=== PATIENT | male | born 1980 | race Caucasian/White ===

== ENCOUNTER 2024-03-06 18:38 | Emergency (ER) | payer OTHER ==
[2024-03-06 18:58] VITALS: BMI 23.6
[2024-03-06] MEDS ORDERED: ONDANSETRON 4 MG/2 ML VIAL ONE (20:04)
[2024-03-06] MEDS: ACETAMINOPHEN 1000 MG/100 ML BAG IVPB ONE (20:06)
[2024-03-06] MEDS: ONDANSETRON 4 MG/2 ML VIAL IVPUSH ONE (20:06)
[2024-03-06] MEDS: SODIUM CHLORIDE 0.9% 500 ML INFUS.BAG IV ONE (20:06)
[2024-03-06 20:14] LABS: BASO % 0.4 % (0-2.0); EOS % 0.9 % (0-4.5); HEMATOCRIT 41.3 % (35.4-49); HEMOGLOBIN 14.4 GM/dL (11.7-16.9); LYMPH % 13.2 % (8-40); MCH 31.3 pg (25.7-33.7); MCHC 34.9 g/dl (32.0-35.9); MEAN CELL VOLUME 89.8 fl (80-96); MEAN PLT VOLUME 9.6 fl (7.5-11.1); MONO % 10.5 % (3.8-10.2); PLATELET COUNT 235 10^3/uL (134-434); RBC 4.59 M/mm3 (4.00-5.60); RDW 13.1 % (11.9-15.9); WHITE BLOOD COUNT 8.9 K/mm3 (4.0-10.0)
[2024-03-06 20:31] LABS: THROAT:GRP A STREP NOT DETECTED (NOTDETECTED)
[2024-03-06 20:36] LABS: POTASSIUM 4.4 mmol/L (3.5-5.1)
[2024-03-06 20:38] LABS: CALCIUM 9.1 mg/dL (8.5-10.1)
[2024-03-06 20:39] LABS: BLOOD UREA NITROGEN 7.5 mg/dL (7-18)
[2024-03-06 20:42] LABS: CREATININE 0.8 mg/dL (0.55-1.3)
[2024-03-06 20:44] LABS: TOT PROT 7.1 g/dl (6.4-8.2)
[2024-03-06 20:49] LABS: BILIRUBIN,TOTAL 0.6 mg/dL (0.2-1)
[2024-03-06] MEDS ORDERED: KETOROLAC TROMETHAMINE 30 MG/1 ML VIAL IVPUSH ONE (21:01)
[2024-03-06 21:21] VITALS: BP 105/63; PULSE 67; RESP 16; TEMP 98.6
== END 2024-03-06 22:06 | disposition home or self-care (01) ==
LOC: JERFT 18:38 → JER 18:38 → JERFT 22:06
PROC: 3E030NZ Introduction of Analgesics, Hypnotics, Sedatives into Peripheral Vein, Open Approach (ICD-10-PCS; principal; 2024-03-06)
PROC: 3E030GC Introduction of Other Therapeutic Substance into Peripheral Vein, Open Approach (ICD-10-PCS; 2024-03-06)
DX: R09.81 Nasal congestion (principal); B34.9 Viral infection, unspecified; M79.10 Myalgia, unspecified site; R50.9 Fever, unspecified; R11.2 Nausea with vomiting, unspecified; Z20.822 Contact with and (suspected) exposure to COVID-19
CPT/HCPCS: 0241U-QW; 36415; 80053; 85025; 87651; 99284-25; J0131

== ENCOUNTER 2024-04-23 00:49 | Emergency (ER) | payer OTHER ==
[2024-04-23 00:54] VITALS: BP 131/69; RESP 18; BMI 25.8
[2024-04-23] MEDS ORDERED: ACETAMINOPHEN INJECTION 100 ML IVPB ONE (01:28)
[2024-04-23] MEDS ORDERED: ONDANSETRON 4 MG/2 ML VIAL ONE (01:28)
[2024-04-23] MEDS: LACTATED RINGERS SOLUTION 1000 ML INFUS.BAG IV ONE (01:37)
[2024-04-23] MEDS: ONDANSETRON 4 MG/2 ML VIAL IVPUSH ONE (01:37)
[2024-04-23] MEDS: ACETAMINOPHEN 1000 MG/100 ML BAG IVPB ONE (01:37)
[2024-04-23 01:41] LABS: HEMATOCRIT 37.4 % (35.4-49); HEMOGLOBIN 12.9 GM/dL (11.7-16.9); MCH 31.1 pg (25.7-33.7); MCHC 34.4 g/dl (32.0-35.9); MEAN CELL VOLUME 90.3 fl (80-96); MEAN PLT VOLUME 9.5 fl (7.5-11.1); PH,URINE 6.5 (5.0-8.0); PLATELET COUNT 244 10^3/uL (134-434); RBC 4.14 M/mm3 (4.00-5.60); URINE APPEARANCE CLEAR; URINE BILIRUBIN NEGATIVE (NEGATIVE); URINE COLOR YELLOW; URINE GLUCOSE (UA) NEGATIVE (NEGATIVE); URINE KETONE 1+ (NEGATIVE); URINE LEUK ESTERASE NEGATIVE (NEGATIVE); URINE NITRITE NEGATIVE (NEGATIVE); URINE PROTEIN TRACE (NEGATIVE); WHITE BLOOD COUNT 22.5 K/mm3 (4.0-10.0)
[2024-04-23 01:59] LABS: POTASSIUM 3.9 mmol/L (3.5-5.1)
[2024-04-23 02:01] LABS: CALCIUM 8.5 mg/dL (8.5-10.1)
[2024-04-23 02:02] LABS: ALBUMIN 3.8 g/dl (3.4-5.0); BLOOD UREA NITROGEN 8.6 mg/dL (7-18); MAGNESIUM 1.6 mg/dL (1.8-2.4)
[2024-04-23 02:05] LABS: CREATININE 0.7 mg/dL (0.55-1.3)
[2024-04-23 02:08] LABS: BILIRUBIN,TOTAL 0.8 mg/dL (0.2-1); TOT PROT 6.8 g/dl (6.4-8.2)
[2024-04-23] MEDS ORDERED: MAGNESIUM SULFATE IN WATER 2 GM/50 ML IVPB IVPB ONE (02:11)
[2024-04-23] MEDS ORDERED: KETOROLAC TROMETHAMINE 15 MG/ML VIAL ONE (02:15)
[2024-04-23] MEDS: KETOROLAC TROMETHAMINE 15 MG/ML VIAL IVPUSH ONE (02:18)
[2024-04-23] MEDS: MAGNESIUM SULFATE IN WATER 2 GM/50 ML IVPB IVPB ONE (02:18)
[2024-04-23 03:06] LABS: ANISOCYTOSIS 0; MACROCYTOSIS 0
[2024-04-23 04:22] VITALS: PULSE 76; TEMP 99.2
== END 2024-04-23 04:31 | disposition home or self-care (01) ==
LOC: JER 00:49
PROC: 3E033GC Introduction of Other Therapeutic Substance into Peripheral Vein, Percutaneous Approach (ICD-10-PCS; principal; 2024-04-23)
PROC: 3E033GC Introduction of Other Therapeutic Substance into Peripheral Vein, Percutaneous Approach (ICD-10-PCS; 2024-04-23)
PROC: 3E033NZ Introduction of Analgesics, Hypnotics, Sedatives into Peripheral Vein, Percutaneous Approach (ICD-10-PCS; 2024-04-23)
PROC: 3E0333Z Introduction of Anti-inflammatory into Peripheral Vein, Percutaneous Approach (ICD-10-PCS; 2024-04-23)
DX: M54.50 Low back pain, unspecified (principal); R11.2 Nausea with vomiting, unspecified; R50.9 Fever, unspecified; Z20.822 Contact with and (suspected) exposure to COVID-19
CPT/HCPCS: 0241U-QW; 36415; 74177-TC; 80053; 81003; 83735; 85025; 87086; 99285-25; J0131; Q9967